=== PATIENT | female | born 1975 | race Caucasian/White ===

== ENCOUNTER 2019-08-08 08:26 | Day surgery (SDC) | payer BC ==
[2019-08-05 10:56] VITALS: BMI 29.2
[2019-08-08] MEDS ORDERED: ROPIVACAINE HCL 0.5% 30ML VIAL ONE (09:23)
[2019-08-08] MEDS ORDERED: MIDAZOLAM HCL 2 MG/2 ML SINGLE DOSE VIAL ONE ×2 (09:23→11:11)
[2019-08-08] MEDS ORDERED: PROPOFOL 20 ML ONE (10:01)
--- NOTE | 2019-08-08 10:56 | HP ---
History & Physical Update - History History: No Change - Physical Physical: No Change - Assessment Assessment: No Change - Plan Plan: No Change (no change since visit on 08/06/19)
[2019-08-08] MEDS ORDERED: ceFAZolin SODIUM 1 GM VIAL ONE (11:16)
--- NOTE | 2019-08-08 12:17 | OP ---
Operative Note - Note: Operative Date: 08/08/19 Pre-Operative Diagnosis: left shoulder pain/ impingement, limited ROM Operation: Left shoulder arthroscopy, SAD, [place] Post-Operative Diagnosis: Same as Pre-op Surgeon: Low Pierson Top Former: Sara Boss Anesthesiologist/PEDIATRIC DENTIST: Sorin Johnson Anesthesia: Local (block with sedation) Estimated Blood Loss (mls): 10 Fluid Volume Replaced (mls): 700 Operative Report Dictated: Yes
--- NOTE | 2019-08-08 12:18 | SURG ---
Surgery Tinsel Machine Operator Note Tinsel Machine Operator: Sara Boss PA-C Date of Service: 08/08/19 Diagnosis: left shoulder pain, impingement, limited ROM Procedure: left shoulder arthroscopy, subacromial decompression, manipulation under anesthesia. I was present for the entirety of the operative procedure. For further detail, please refer to operative report. Visit type - Case Type Case Type: Scheduled - Emergency Emergency Visit: No - New patient This patient is new to me today: Yes Date on this admission: 08/08/19
[2019-08-08 13:14] VITALS: TEMP 97.8
--- NOTE | 2019-08-08 13:40 | OP ---
DATE OF OPERATION: 08/08/2019 PREOPERATIVE DIAGNOSIS: Impingement to the left shoulder with rotator cuff tear. POSTOPERATIVE DIAGNOSES: 1. Frozen left shoulder with adhesive capsulitis. 2. Glenoid labral tear. 3. Impingement from the lateral clavicle including the articular portion. 4. Impingement from the acromion. 5. Extensive joint debris. 6. Tearing of the rotator cuff. PROCEDURES PERFORMED: 1. Manipulation of the left shoulder under anesthesia with lysis and resection of adhesions. 2. Glenoid labral resection. 3. Lateral clavicular resection with resection of impinging articular surface, a Wily procedure. 4. Acromioplasty. 5. Extensive joint debridement. 6. Debridement of tearing of the rotator cuff, which was partial thickness. SURGEON: Low Pierson MD SNACK FOODS MIXER OPERATOR: TRAVON Reyes TYPE OF ANESTHESIA: A regional interscalene block. ANESTHESIOLOGIST: Sorin Johnson MD DESCRIPTION OF PROCEDURE: The procedure consisted of the patient being brought into the operating room and gently transferred from the stretcher to the OR table with all bony prominences well padded. The left shoulder was prepared and draped in a sterile fashion. The patient was given intravenous antibiotics and copious irrigation throughout the procedure to minimize risk for infection. A complete risk, benefit, alternative discussion was conducted with the patient, which was inclusive of, but not limited to, infection, bleeding, , paralysis, increased pain, need for repeat surgery. Patient asked questions, understood the procedure, and desired to proceed with surgical treatment. Following sterile preparation and draping of the left shoulder, an appropriate time-out was conducted, which was inclusive of, but not limited to, type of surgery, site of surgery, anesthesiologist, and surgeon. The patient had been placed in the left side up lateral decubitus position with all bony prominences well padded. A pillow had been placed between the legs and below the legs to protect the neurovascular structures to the legs. A pneumatic patient support rest was used to provide contouring and support for the patient and protecting bony prominences. The neck was kept in good alignment throughout the procedure by the anesthesiologist. The face was protected throughout the procedure by the anesthesiologist. A gentle manipulation left shoulder was performed. Initially abduction was to 95 degrees, flexion to 95 degrees, extension 10 degrees, internal rotation 60 degrees, external rotation 10 degrees. Following the gentle, slow manipulation under anesthesia to the left shoulder, range of movement was abduction was 165 degrees, flexion to 165 degrees, extension 30 degrees, internal rotation 90 degrees, external rotation 30 degrees. General traction had been used through the procedure using a traction device for the shoulder of approximately 8 pounds. The glenohumeral joint had been evaluated. There were noted to be adhesions within the joint, which prevented smooth movement of the shoulder, and these were lysed and resected. There was noted to be extensive debridement within the joint, and extensive joint debridement was performed. Anterior and posterior recesses were without loose body or plica. Middle glenohumeral ligament was found to be intact as was the biceps tendon. There was noted to be tearing of the glenoid labrum, and a glenohumeral resection was performed using shaver and radiofrequency wand. The personalized living assistant held the arthroscope as I used the surgical instruments and was vital for safe surgery Rotator cuff was found to have a tear, which was probed and found to be partial thickness, and this was debrided using shaver and radiofrequency wand. The shoulder joint was copiously irrigated, and our attention was turned to the subacromial space. There was noted to be inflamed bursal tissue, and extensive bursectomy was performed. Lateral collateral acromial edge was noted to have an edge of bone impinging upon the rotator cuff, and this was debrided, and high-speed bur and shaver were used to resect a wedge of bone thick anteriorly, thin posteriorly. Lateral clavicle including the articular portion was also creating impingement, and this was debrided, and high-speed bur and shaver were used to resect the lateral clavicle including the articular portion creating impingement. A Wily procedure was performed. The rotator cuff on the bursal side was again examined and found to be intact. The shoulder joint was then copiously irrigated with sterile saline irrigant. The wounds were then closed with 4-0 undyed Vicryl followed by Steri-Strips, Xeroform, 4 x 4's, Combine, Elastoplast, and a shoulder immobilizer. The patient was then gently awoken from anesthesia without incident and transferred from the operating room to the recovery room in satisfactory condition. There were no intraoperative complications. Tiesha [id number] MTDD
[2019-08-08] MEDS ORDERED: PROMETHAZINE HCL 25 MG/1 ML VIAL IVPUSH PRN (13:46)
[2019-08-08] MEDS ORDERED: ONDANSETRON 4 MG/2 ML VIAL IVPUSH PRN (13:46)
[2019-08-08] MEDS ORDERED: oxyCODONE HCL 5 MG TABLET PO PRN ×2 (13:46)
[2019-08-08 14:44] VITALS: BP 112/71; PULSE 74
== END 2019-08-08 13:35 | disposition home or self-care (01) ==
LOC: FASU 08:26
PROVIDERS: ATTEND Orthopaedic Surgery
PROC: 0RNK4ZZ Release Left Shoulder Joint, Percutaneous Endoscopic Approach (ICD-10-PCS; 2019-08-08)
PROC: 0RQK4ZZ Repair Left Shoulder Joint, Percutaneous Endoscopic Approach (ICD-10-PCS; 2019-08-08)
PROC: 0RBK4ZZ Excision of Left Shoulder Joint, Percutaneous Endoscopic Approach (ICD-10-PCS; 2019-08-08)
PROC: 0PBB4ZZ Excision of Left Clavicle, Percutaneous Endoscopic Approach (ICD-10-PCS; 2019-08-08)
PROC: 0LQ24ZZ Repair Left Shoulder Tendon, Percutaneous Endoscopic Approach (ICD-10-PCS; principal; 2019-08-08 11:35)
DX: M75.112 Incomplete rotator cuff tear or rupture of left shoulder, not specified as traumatic (principal); M75.02 Adhesive capsulitis of left shoulder; M24.112 Other articular cartilage disorders, left shoulder; M24.012 Loose body in left shoulder
CPT/HCPCS: 84703; 94760

== ENCOUNTER 2020-05-17 09:49 | Day surgery (SDC) | payer BC ==
[2020-05-05 10:08] VITALS: BMI 28.3
[2020-05-17] MEDS ORDERED: BUPIVACAINE HCL/PF 0.25% (2.5MG/ML) 10 ML VIAL ONE (11:00)
[2020-05-17] MEDS ORDERED: MIDAZOLAM HCL 2 MG/2 ML SINGLE DOSE VIAL ONE (11:48)
[2020-05-17] MEDS ORDERED: LIDOCAINE 1% P/F 10 MG/ML VIAL ONE (11:49)
[2020-05-17] MEDS ORDERED: ROPIVACAINE HCL 0.5% 30ML VIAL ONE (11:49)
[2020-05-17] MEDS ORDERED: ceFAZolin SODIUM 1 GM VIAL ONE (11:56)
[2020-05-17] MEDS ORDERED: DEXAMETHASONE SOD PHOSPHATE 4 MG/1 ML VIAL ONE (11:57)
[2020-05-17] MEDS ORDERED: KETOROLAC TROMETHAMINE 30 MG/1 ML VIAL ONE (11:57)
[2020-05-17] MEDS ORDERED: ONDANSETRON 4 MG/2 ML VIAL ONE (11:57)
[2020-05-17] MEDS ORDERED: ONDANSETRON 4 MG/2 ML VIAL IVPUSH PRN (12:26)
[2020-05-17] MEDS ORDERED: LACTATED RINGERS SOLUTION 1,000 ML IV SCH (12:30)
[2020-05-17] MEDS ORDERED: BUPIVACAINE HCL/PF 0.25% (2.5MG/ML) 10 ML VIAL IJ ONE (12:30)
[2020-05-17 13:42] VITALS: TEMP 98
[2020-05-17 14:01] VITALS: BP 110/69; PULSE 73
--- NOTE | 2020-05-18 11:27 | OP ---
DATE OF OPERATION: 05/17/2020 PREOPERATIVE DIAGNOSES: 1. Stiff left wrist. 2. Triangular cartilage tear, left wrist. POSTOPERATIVE DIAGNOSES: 1. Stiff left wrist. 2. Tear of triangular cartilage, left wrist. 3. Chondral injury to left wrist. 4. Hypertrophic synovium to left wrist. 5. Extensive joint debris to left wrist. PROCEDURE PERFORMED: 1. Gentle manipulation under anesthesia to the left wrist with lysis and resection of adhesions. 2. Resection of triangular cartilage of left wrist. 3. Chondral shaving, left wrist. 4. Extensive synovectomy, left wrist. 5. Extensive joint debridement. SURGEON: Savanna Montejo MD DOUBLE NEEDLE OPERATOR: AZALIA Cano ANESTHESIA: Devon Mg MD. TYPE OF ANESTHESIA: General anesthesia. The procedure consisted of the patient being brought into the operating room and gently transferred from the stretcher to the OR table with all bony prominences well padded. The left wrist was prepared and draped in a sterile fashion. The patient was given intravenous antibiotics and copious irrigation throughout the procedure to minimize risk for infection. A complete risk/benefit/alternative discussion was conducted with the patient, which was inclusive of but not limited to infection, bleeding, , paralysis, increased pain, need for repeat surgery. The patient asked questions, understood the procedure, and desired to proceed with surgical treatment. Following sterile preparation and draping of the left wrist, the medial and lateral ports were used to introduce the arthroscope and arthroscopic instruments. It should be noted that prior to initiation of the procedure, a gentle manipulation under anesthesia was performed. Initial dorsiflexion was 30 degrees, palmar flexion 20 degrees, radial deviation was neutral, ulnar deviation was 2 degrees, supination was missing 30 degrees, and pronation was full. Following the gentle manipulation, dorsiflexion was 60 degrees, palmar flexion 40 degrees, radial deviation 5 degrees, ulnar deviation 7 degrees, supination was missing only 10 degrees, and pronation was full. Following introduction of the arthroscope and arthroscopic instruments, the radiocarpal joint was evaluated. There was noted to be adhesions. These were lysed and resected. There was noted to be chondral damage to distal radial articulation, and chondral shaving using shaver and radiofrequency wand was performed. There was noted to be extensive hypertrophic synovium, and extensive synovectomy was performed. Joint debris was also identified in the radiocarpal joint, and extensive joint debridement was performed. Triangular cartilage was visualized, and there was noted to be tearing of the triangular cartilage, and this was debrided using shaver and radiofrequency wand. The wrist joint was then copiously irrigated with sterile saline irrigant. The wounds were closed by Steri-Strips, followed by Xeroform, 4 x 4s, sterile Webril, and Winston bandage, and a stockinette for elevation. The patient was then gently awoken from anesthesia without incident and transferred from the operating room to the recovery room. A tourniquet had been applied but not inflated for this procedure.Wolfgang Scott was critical for assisting during surgery, holding the arthroscope I used the drill and arthroscopic instruments. He provided critical support and safety in surgical treatment. SAVANNA MONTEJO M.D. [id number] MTDD
== END 2020-05-17 14:30 | disposition home or self-care (01) ==
LOC: FASU 09:49
PROVIDERS: ATTEND Orthopaedic Surgery
PROC: 0RBP4ZZ Excision of Left Wrist Joint, Percutaneous Endoscopic Approach (ICD-10-PCS; 2020-05-17)
PROC: 0MQ64ZZ Repair Left Wrist Bursa and Ligament, Percutaneous Endoscopic Approach (ICD-10-PCS; 2020-05-17)
PROC: 0MB64ZZ Excision of Left Wrist Bursa and Ligament, Percutaneous Endoscopic Approach (ICD-10-PCS; principal; 2020-05-17 12:20)
DX: S63.592A Other specified sprain of left wrist, initial encounter (principal); S63.8X2A Sprain of other part of left wrist and hand, initial encounter; X58.XXXA Exposure to other specified factors, initial encounter; Y93.9 Activity, unspecified; Y92.9 Unspecified place or not applicable; M25.632 Stiffness of left wrist, not elsewhere classified; M67.232 Synovial hypertrophy, not elsewhere classified, left forearm; R29.898 Other symptoms and signs involving the musculoskeletal system
CPT/HCPCS: 84703; 94760